=== PATIENT | female | born 1945 | race Caucasian/White ===

== ENCOUNTER → 2019-06-08 | Emergency (ER) | payer MEDICARE, MEDICAID ==
[~2019-06-08] VITALS: Ht 160 cm; Wt 83.9 kg
[~2019-06-08] MED LIST: ACYCLOVIR200 MG ORAL; Acyclovir 1,000 MG in D5W 275 ML IV ONE; BACLOFEN10 MG ORAL; Fluorescein Strips BOTH EYES ONE; GABAPENTIN100 MG ORAL; Isovue-300 100ml vial INJ PRN; Tetracaine 0.5% Opth 4ml Soln RIGHT EYE ONE
--- NOTE | 2019-06-08 11:15 | NUR ---
ED Nurse Note: pt walked in with daughter c/o pain on the fce accompanied by vomitng x 3 days adn weakness. pt stated she has shingles outbreak started 3 days and was seen in [facility] 3 dys ago and was Rx medication but unable to tolerate meds per [place]. pt noted to have skin rash on the upper face, pt is south [place] speaking.
[2019-06-08 11:20] VITALS: BP 139/51
--- NOTE | 2019-06-08 11:32 | Emergency Room Report ---
History of Present Illness General Chief Complaint: Vomiting Source: Family Member Present Illness HPI 73-year-old female presents with a diagnosis of shingles that was diagnosed 7 days ago, patient has not been able to take her acyclovir due to intolerance of the medication, patient feels a headache, feels a lot of pain, no change in vision, feeling a little off, patient denies any fevers chills chest pain shortness of breath, patient presents for evaluation. She endorses a sharp pain where the shingles spots are on her face, no aggravating or relieving factors, severity is severe's. Onset was 7 days ago Allergies: Coded Allergies: No Known Allergies (Unverified , 06/08/19) Patient History Past Medical History: see triage record Reviewed Nursing Documentation: PMH: Agreed; PSxH: Agreed Nursing Documentation-PMH Past Medical History: No History, Except For Hx Hypertension: Yes Review of Systems All Other Systems: negative except mentioned in HPI Physical Exam Vital Signs Date Time Temp Pulse Resp B/P (MAP) Pulse Ox O2 Delivery O2 Flow Rate FiO2 06/08/19 11:02 97.5 84 18 139/51 (80) 97 Room Air Sp02 EP Interpretation: reviewed, normal General Appearance: well appearing, no apparent distress, alert Head: normocephalic, atraumatic Eyes: bilateral eye PERRL, bilateral eye EOMI, bilateral eye other - NEGATIVE uptake, no dendrites in the eyes ENT: uvula midline, moist mucus membranes Neck: supple, thyroid normal, supple/symm/no masses Respiratory: lungs clear, no respiratory distress, no retraction, no accessory muscle use Cardiovascular #1: normal peripheral pulses, regular rate, rhythm, no edema, no gallop, no murmur Gastrointestinal: non tender, soft, no guarding, no rebound Musculoskeletal: normal inspection Neurologic: alert, oriented x3 Psychiatric: mood/affect normal Skin: rash - Right face, vesicular spots are present, warm/dry Medical Decision Making Diagnostic Impression: Primary Impression: Intractable nausea and vomiting Qualified Codes: R11.2 - Nausea with vomiting, unspecified Additional Impressions: Shingles rash Qualified Codes: B02.8 - Zoster with other complications Pulmonary edema Qualified Codes: J81.1 - Chronic pulmonary edema ER Course 73-year-old female presents with shingles rash, no ophthalmologic involvement however patient has not been able to take her medications by mouth due to intolerance, IV acyclovir was started, patient was able to tolerate it, will admit patient for IV antiretrovirals. Spoke with Dr. Iniguez from her healthcare company, will accept patient to a SNF, patient will receive IV retrovirals. Patient to be transferred to SNF Laboratory Tests Test 06/08/19 11:15 06/08/19 12:04 White Blood Count 6.5 K/UL (4.8-10.8) Red Blood Count 3.90 M/UL (4.20-5.40) L Hemoglobin 11.4 G/DL (12.0-16.0) L Hematocrit 35.4 % (37.0-47.0) L Mean Corpuscular Volume 91 FL (80-99) Mean Corpuscular Hemoglobin 29.2 PG (27.0-31.0) Mean Corpuscular Hemoglobin Concent 32.2 G/DL (32.0-36.0) Red Cell Distribution Width 12.2 % (11.6-14.8) Platelet Count 205 K/UL (150-450) Mean Platelet Volume 8.6 FL (6.5-10.1) Neutrophils (%) (Auto) 79.1 % (45.0-75.0) H Lymphocytes (%) (Auto) 13.1 % (20.0-45.0) L Monocytes (%) (Auto) 6.5 % (1.0-10.0) Eosinophils (%) (Auto) 0.4 % (0.0-3.0) Basophils (%) (Auto) 0.9 % (0.0-2.0) Prothrombin Time 10.4 SEC (9.30-11.50) Prothrombin Time INR 1.0 (0.9-1.1) PTT 28 SEC (23-33) Sodium Level 132 MMOL/L (136-145) L Potassium Level 4.1 MMOL/L (3.5-5.1) Chloride Level 99 MMOL/L (98-107) Carbon Dioxide Level 25 MMOL/L (21-32) Anion Gap 8 mmol/L (5-15) Blood Urea Nitrogen 16 mg/dL (7-18) Creatinine 0.8 MG/DL (0.55-1.30) Estimate Glomerular Filtration Rate mL/min (>60) Glucose Level 139 MG/DL (74-106) H Lactic Acid Level 1.00 mmol/L (0.4-2.0) Calcium Level 7.9 MG/DL (8.5-10.1) L Phosphorus Level 2.0 MG/DL (2.5-4.9) L Magnesium Level 2.5 MG/DL (1.8-2.4) H Total Bilirubin 0.4 MG/DL (0.2-1.0) Aspartate Amino Transferase (AST) 18 U/L (15-37) Alanine Aminotransferase (ALT) 22 U/L (12-78) Alkaline Phosphatase 41 U/L (46-116) L Total Creatine Kinase 365 U/L (26-308) H Creatine Kinase MB 1.6 NG/ML (0.0-3.6) Creatine Kinase MB Relative Index 0.4 Troponin I 0.000 ng/mL (0.000-0.056) Total Protein 7.0 G/DL (6.4-8.2) Albumin 3.8 G/DL (3.4-5.0) Globulin 3.2 g/dL Lipase 100 U/L (73-393) Urine Color Pale yellow Urine Appearance Clear Urine pH 6 (4.5-8.0) Urine Specific [place] 1.015 (1.005-1.035) Urine Protein Negative (NEGATIVE) Urine Glucose (UA) Negative (NEGATIVE) Urine Ketones 2+ (NEGATIVE) H Urine Blood Negative (NEGATIVE) Urine Nitrite Negative (NEGATIVE) Urine Bilirubin Negative (NEGATIVE) Urine Urobilinogen Normal MG/DL (0.0-1.0) Urine Leukocyte Esterase 1+ (NEGATIVE) H Urine RBC 0 /HPF (0 - 2) Urine WBC 0-2 /HPF (0 - 2) Urine Squamous Epithelial Cells None /LPF (NONE/OCC) Urine Bacteria None /HPF (NONE) EKG Diagnostic Results EKG Time: 11:16 EP Interpretation: Sinus bradycardia, rate 51, right bundle branch block, no acute ST elevatio Rate: bradycardiac Rhythm: other - Sinus bradycardia ST Segments: no acute changes Rhythm Strip Diag. Results Rhythm Strip Time: 11:32 EP Interpretation: yes Rate: 53 Rhythm: other - Sinus bradycardia, rate 52 Chest X-Ray Diagnostic Results Chest X-Ray Diagnostic Results : Chest X-Ray Ordered: Yes # of Views/Limited/Complete: 1 View Indication: Other - preop Interpretation: other Impression: Other - interstitial edema Electronically Signed by: Umberto Sanchez MD CT/MRI/US Diagnostic Results CT/MRI/US Diagnostic Results : Impression Comparison: none Findings: There is a fat attenuation mass wrapping around the splenium of the corpus callosum and extending along the posterior condylar surface. This does not demonstrate any significant cysts contrast enhancement. No callosal anomalies are demonstrated. Is is adjacent to but does not appear to compress the vein of Lee Precontrast images demonstrate no evidence of acute intracranial hemorrhage or edema, mass effect, nor midline shift. Normal rodríguez-white differentiation. Normal size ventricles and extra axial CSF spaces. Postcontrast images demonstrate no evidence of unusual contrast enhancement. There is suggestion of prior bilateral cataract surgery. 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 These are typically asymptomatic, but can be associated with headaches and seizures The CT scanner at [facility] is accredited by the [employer] and the scans are performed using protocols designed to limit radiation exposure to as low as reasonably achievable to attain images of sufficient resolution adequate for diagnostic evaluation. Dictated By: Godfrey Laguerre MD Electronically Signed By: Godfrey Laguerre MD Signed Date/Time 06/08/19 1407 CC: Umberto Sanchez MD Last Vital Signs Date Time Temp Pulse Resp B/P (MAP) Pulse Ox O2 Delivery O2 Flow Rate FiO2 06/08/19 11:02 97.5 84 18 139/51 (80) 97 Room Air Disposition: XFER SNF Condition: Stable Additional Instructions: The patient was provided with discharge instructions, notified to follow-up with a primary care doctor and or specialist in the next 24-48 hours, and to return to the ED if they have worsening of their symptoms. Please note that this report is being documented using [employer] technology. This can lead to erroneous entry secondary to incorrect interpretation by the dictating instrument. Umberto Sanchez MD Jun 08, 2019 11:32
[2019-06-08 11:34] LABS: BASOPHILS % (AUTO) 0.9 % (0.0-2.0); EOSINOPHILS % (AUTO) 0.4 % (0.0-3.0); HEMATOCRIT 35.4 % (37.0-47.0); HEMOGLOBIN 11.4 G/DL (12.0-16.0); LYMPHOCYTES % (AUTO) 13.1 % (20.0-45.0); MEAN CORPUSCULAR VOLUME 91 FL (80-99); MONOCYTES % (AUTO) 6.5 % (1.0-10.0); NEUTROPHILS % (AUTO) 79.1 % (45.0-75.0); PLATELET COUNT 205 K/UL (150-450); RED CELL DISTRIBUTION WIDTH 12.2 % (11.6-14.8); WHITE BLOOD COUNT 6.5 K/UL (4.8-10.8)
--- NOTE | 2019-06-08 11:36 | NUR ---
ED Nurse Note: pt is medicated as ordered, pt able to tolerate meds. will continue to monitor.
--- NOTE | 2019-06-08 11:53 | NUR ---
ED Nurse Note: Dr. Sanchez at the bedside
[2019-06-08 11:56] LABS: ALANINE AMINOTRANSFERASE 22 U/L (12-78); ALKALINE PHOSPHATASE 41 U/L (46-116); ANION GAP 8 mmol/L (5-15); ASPARTATE AMINO TRANSFERASE 18 U/L (15-37); BILIRUBIN,TOTAL 0.4 MG/DL (0.2-1.0); CARBON DIOXIDE 25 MMOL/L (21-32); CHLORIDE 99 MMOL/L (98-107); CKMB 1.6 NG/ML (0.0-3.6); CREATINE KINASE 365 U/L (26-308); POTASSIUM 4.1 MMOL/L (3.5-5.1); SODIUM 132 MMOL/L (136-145)
--- NOTE | 2019-06-08 12:05 | NUR ---
ED Nurse Note: assisted pt. to use bedside commode
[2019-06-08 12:07] LABS: ALBUMIN 3.8 G/DL (3.4-5.0); BLOOD UREA NITROGEN 16 mg/dL (7-18); CALCIUM 7.9 MG/DL (8.5-10.1); CREATININE 0.8 MG/DL (0.55-1.30)
[2019-06-08 12:34] LABS: APPEARANCE,URINE CLEAR; BILIRUBIN, URINE NEGATIVE (NEGATIVE); COLOR,URINE PALE YELLOW; GLUCOSE, URINE (UA) NEGATIVE (NEGATIVE); KETONES,URINE 2+ (NEGATIVE); LEUKOCYTE ESTERASE ,URINE 1+ (NEGATIVE); NITRITE,URINE NEGATIVE (NEGATIVE); PH,URINE 6 (4.5-8.0); PROTEIN,URINE NEGATIVE (NEGATIVE); UROBILINOGEN,URINE NORMAL MG/DL (0.0-1.0)
--- NOTE | 2019-06-08 12:42 | NUR ---
ED Nurse Note: pt went to ct with tech
--- NOTE | 2019-06-08 13:01 | Diagnostic Imaging Report ---
Indication: Chest pain Technique: One view of the chest Comparison: None Findings: The heart is enlarged. There is mild bilateral diffuse interstitial edema. No definite effusions. No definite airspace consolidation Impression: Bilateral interstitial edema Cardiomegaly
--- NOTE | 2019-06-08 13:07 | NUR ---
ED Nurse Note: pt complains of nausea and ermd made aware with orer of iv zofran and given. pt able to tolerate. will continue to monitor.
[2019-06-08 13:16] VITALS: BP 118/49
--- NOTE | 2019-06-08 14:12 | Diagnostic Imaging Report ---
Indication: Pain and headache, recent history of shingles Technique: Spiral acquisitions obtained through the brain pre- and post-IV contrast administration. Angled axial and coronal 5 x 5 mm slices reconstructed. Total dose length product 2691.75 mGycm. CTDIvol(s) 70.38,70.38 mGy. Dose reduction achieved using automated exposure control Comparison: none Findings: There is a fat attenuation mass wrapping around the splenium of the corpus callosum and extending along the posterior condylar surface. This does not demonstrate any significant cysts contrast enhancement. No callosal anomalies are demonstrated. Is is adjacent to but does not appear to compress the vein of Lee Precontrast images demonstrate no evidence of acute intracranial hemorrhage or edema, mass effect, nor midline shift. Normal rodríguez-white differentiation. Normal size ventricles and extra axial CSF spaces. Postcontrast images demonstrate no evidence of unusual contrast enhancement. There is suggestion of prior bilateral cataract surgery. 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 These are typically asymptomatic, but can be associated with headaches and seizures The CT scanner at [facility] is accredited by the [employer] and the scans are performed using protocols designed to limit radiation exposure to as low as reasonably achievable to attain images of sufficient resolution adequate for diagnostic evaluation.
--- NOTE | 2019-06-08 14:30 | NUR ---
unable to locate the senior living avilable at this time patient has to be admitted some where and will find another contracted facility for admission
[2019-06-08 15:24] VITALS: BP 131/55
[2019-06-08 17:17] VITALS: BP 125/56
--- NOTE | 2019-06-08 17:17 | NUR ---
ED Nurse Note: pt is trasnfered to [facility] via [facility] and report was given to ale rn. pt left the ed with stable vs and with all belongings.
--- NOTE | 2019-06-09 11:05 | Cardiology Report ---
APPROVED REPORT EKG Measurement Heart [id number] Sinus bradycardia Right bundle branch block Minimal voltage criteria for LVH, may be normal variant Abnormal ECG
== END | disposition short-term general hospital (02) ==
LOC: EMR 11:30
DX: B02.8 Zoster with other complications (principal); I10 Essential (primary) hypertension; J81.1 Chronic pulmonary edema; R11.2 Nausea with vomiting, unspecified; I45.10 Unspecified right bundle-branch block; R00.1 Bradycardia, unspecified
CPT/HCPCS: 36415; 70470; 71045; 80053; 81003; 82550; 82553; 83605; 83690; 83735; 84100; 84484; 85025; 85610; 85730; 87040; 93005; 96365; 96375; 96376; 99284; J0133; J1940; J2405; Q9967